=== PATIENT | female | born 1990 ===

== ENCOUNTER 2017-09-13 09:37 | Inpatient (IN) | payer OTHER ==
[~2017-09-13] VITALS: Ht 157.5 cm; Wt 82.1 kg
[2017-09-13] MEDS ORDERED: PRENATAL TABLE1 EAC2 PO (10:21)
[2017-09-13] MEDS ORDERED: HEALTHY HEART1 EACH PO (10:22)
[2017-09-13 10:48] LABS: ABSOLUTE BASOPHIL COUNT 0 /CUMM (0.0-0.2); ABSOLUTE EOSINOPHIL COUNT 0 /CUMM (0.0-0.7); ABSOLUTE GRANULOCYTE CT 6.8 /CUMM (1.4-6.5); ABSOLUTE LYMPH COUNT 1.6 /CUMM (1.2-3.4); ABSOLUTE MONOCYTE COUNT 0.6 /CUMM (0.10-0.60); BASOPHIL % 0.3 % (0.0-2.0); EOSINOPHIL % 0.5 % (0-5); GRANULOCYTE % 75.2 % (42.2-75.2); HEMATOCRIT 33.8 % (37-47); MEAN CORPUSCULAR HGB 32.3 PG (27.0-31.0); MEAN CORPUSCULAR HGB CONC 34.7 G/DL (33.0-37.0); MEAN PLATELET VOLUME 11.4 FL (7.4-10.4); RBC DISTRIBUTION WIDTH 15.3 % (11.5-14.5); RED BLOOD CELL CT 3.63 /CUMM (4.20-5.40); WHITE BLOOD CELL COUNT 9.1 /CUMM (4.8-10.8)
--- NOTE | 2017-09-13 11:16 | History & Physical ---
General Information and HPI MD Statement: I have seen and personally examined GABE VIVAR and documented this H&P. Source of Information: patient, old records Exam Limitations: no limitations History of Present Illness: The patient is a 27 year old at 41 weeks and 1 days gestation who presented with a chief complaint of IOL for pedc. Mild ctx. No lof / vb. +FM. GBS pos. RNI. Allergies/Medications Allergies: Coded Allergies: No Known Allergies (09/13/17) NKA PER T.O. OF DR. 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 No Contractions: q10 #1 - FHR Baseline: 130 Category: 1 Estimated Weight: 3800 Presentation: vtx Patient for Induction? Yes Thomas Score Thomas Score Response Value Cervix Position: mid-position 1 Cervix Consistency: soft 2 Cervix Effacement: 60-70% 2 Cervix Dilation: 3-4 cm 2 Cervix Station: -2 1 Total 8 Physical Exam: nad abd soft nt gravid ext nt tr b/l le ed Labs Blood Type & Rh: A pos Antibody Screen: neg Hct/Hgb & Platelets #1: 12.9/ 40.8, 260 Hct/Hgb & Platelets #2: 10.1/ 32.6, 162 Rubella: NI VDRL #1: neg VDRL #2: neg HbsAg: neg HIV #1: neg HIV #2 neg 1 Hr P Group B Strep: POS Initial Ultrasound: 03/21/17 8+1 cwd Anatomy Ultrasound: 04/18/17 olaf wnl Ultrasound for EFW: 08/19 37+4 7#2 55% Genetic Testing: nl NT, cffdna wnl msafp wnl hgb aa cf neg Last 24 Hrs of Labs/Afshin: Laboratory Tests 09/13/17 1026: CBC w Diff Pending, WBC Pending, RBC Pending, Hgb Pending, Hct Pending, MCV Pending, MCH Pending, MCHC Pending, RDW Pending, Plt Count Pending, MPV Pending, Gran % Pending, Lymphocytes % Pending, Monocytes % Pending, Eosinophils % Pending, Basophils % Pending, Absolute Granulocytes Pending, Absolute Lymphocytes Pending, Absolute Monocytes Pending, Absolute Eosinophils Pending, Absolute Basophils Pending 09/13/17 1021: Urine Color YEL, Urine Clarity CLEAR, Urine pH 7.0, Ur Specific Porcupine 1.015, Urine Protein NEG, Urine Ketones NEG, Urine Nitrite NEG, Urine Bilirubin NEG, Urine Urobilinogen 0.2, Ur Leukocyte Esterase NEG, Ur Microscopic EXAM NOT REQUIRED, Urine Hemoglobin NEG, Urine Glucose NEG Assessment/Plan Assessment/Plan: 27yo @ 41+1 wks IOL for pedc, GBS pos, intact, and maternal status reassuring -Admit -GBS proph --> PCN -pitocin -monitoring -MMR for RNI ANSVD As Ranked By This Provider Problem List: 1. Core Measures Venous Thromboembolism VTE Risk Factors / No Mechanical VTE Prophylaxis d/t Early Ambulation No VTE Pharm Prophylaxis d/t LowRisk-No Interven Req'd
[2017-09-13 11:19] LABS: PLATELET COUNT 142 /CUMM (130-400)
--- NOTE | 2017-09-13 16:35 | PN- OBGYN ---
Surgical Brief Attending Note Brief Attending Note: pt w/ mild ctx, slightly increased in intensity afeb, v/ss fht 130s moderate variability +acc no dec toco q 2-4 pit @ 10mu sve /-2, AROM clr p0 41+wks IOL for pedc, GBS pos, on pcn, s/p arom, clr, on pit, and maternal status reassuring -cont current mgmt -pain mgmt prn
--- NOTE | 2017-09-13 19:18 | PN- OBGYN ---
Surgical Brief Attending Note Brief Attending Note: pt c/o increasing ctx, desires nitrous afeb, v/ss fht 150s moderate variability + acc no dec toco q 2-3 pit@ 10mu sve /-2 -cont current mgmt -pain mgmt
--- NOTE | 2017-09-13 21:22 | PN- OBGYN ---
Surgical Brief Attending Note Brief Attending Note: pt w/ increasing ctx, coping well v/ss fht cat 1 sve 6/100/0 per RN cont current mgmt
--- NOTE | 2017-09-14 05:59 | PN- OBGYN ---
Surgical Brief Attending Note Brief Attending Note: pt comfortable w/ epidural afeb, v/ss fht 150s moderate variability +acc no dec toco q 2-4 pit@12mu sve 8-9 / 100 / -1 P0 41+ pedc IOL on pit, GBS on PCN, protracted, and maternal status reassuring -cont pit, current mgmt
--- NOTE | 2017-09-14 09:33 | PN- OBGYN ---
Surgical Brief Attending Note Brief Attending Note: late entry for 7:30AM pt is comfortable with epidural, no complaints. ON TOCO: ctxs q 2-3 min, FHR cat I cervix 9/100%/-1 will continue pitocin, monitor closely
--- NOTE | 2017-09-14 09:35 | PN- OBGYN ---
Surgical Brief Attending Note Brief Attending Note: pt c/o slight rectal pressure on TOCO: ctxs q 2-4 min, FHR baaseline 160, moderate variability, + acels, no decels. cervix 10/100%/0-+1 will let pt labor down, monitor closely
--- NOTE | 2017-09-14 13:38 | Labor & Delivery Summary ---
Delivery Summary Vaginal Delivery: Vaginal: spontaneous Episiotomy/Lacerations: Episiotomy/Lacerations: YES Type: 2nd degree Repair: 3-0 vicryl, 2-0 vicryl Anesthesia: epidural, local Placenta: Placenta: spontanteous, normal, 3 vessel, nuchal cord (x_) (x1) Anesthesia: epidural Baby's Weight: [id number] Apgars - 1 Min: 9 Apgars - 5 Min: 9 Additional Comments: Patient fully dilated, pushed for over 2 hours, spontaneous deliver of a viable female in cephalic presentation, KELTON position, nuchal cord 1 released, head delivered atraumatically, followed by shoulder and rest of the body without difficulties, baby vigorous and cried, placed on mother's chest, nose and mouth were suctioned with suction bulb, cord clamped and cut. Placenta delivered spontaneously, intact, three-vessel cord, retroplacental clot seen. After delivering the placenta, uterine atony encountered, uterus massage to firm, Pitocin IV, Methergine 0.2 mg IM 1, bleeding slowed down. Second-degree laceration repaired with 3-0 Vicryl using standard technique. EBL 1050 mL. Laps and needle counts were correct . Patient tolerated the procedure well, she seen recovery room in stable condition.
[2017-09-14 20:19] LABS: ABSOLUTE BASOPHIL COUNT 0 /CUMM (0.0-0.2); ABSOLUTE EOSINOPHIL COUNT 0 /CUMM (0.0-0.7); ABSOLUTE GRANULOCYTE CT 18.1 /CUMM (1.4-6.5); ABSOLUTE MONOCYTE COUNT 0.7 /CUMM (0.10-0.60); BASOPHIL % 0 % (0.0-2.0); EOSINOPHIL % 0 % (0-5); GRANULOCYTE % 91.4 % (42.2-75.2); HEMATOCRIT 32.4 % (37-47); MEAN CORPUSCULAR HGB 32.1 PG (27.0-31.0); MEAN CORPUSCULAR HGB CONC 34.6 G/DL (33.0-37.0); MEAN CORPUSCULAR VOLUME 92.7 FL (81.0-99.0); PLATELET COUNT 136 /CUMM (130-400); RBC DISTRIBUTION WIDTH 15.6 % (11.5-14.5); RED BLOOD CELL CT 3.49 /CUMM (4.20-5.40)
[2017-09-14 20:29] LABS: WHITE BLOOD CELL COUNT 19.8 /CUMM (4.8-10.8)
[2017-09-15 03:32] VITALS: BP 120/70
[2017-09-15 08:34] LABS: ABSOLUTE BASOPHIL COUNT 0.1 /CUMM (0.0-0.2); ABSOLUTE EOSINOPHIL COUNT 0 /CUMM (0.0-0.7); ABSOLUTE GRANULOCYTE CT 14.7 /CUMM (1.4-6.5); ABSOLUTE LYMPH COUNT 2.2 /CUMM (1.2-3.4); ABSOLUTE MONOCYTE COUNT 1.1 /CUMM (0.10-0.60); BASOPHIL % 0.3 % (0.0-2.0); EOSINOPHIL % 0.2 % (0-5); GRANULOCYTE % 81.3 % (42.2-75.2); HEMATOCRIT 30.2 % (37-47); MEAN CORPUSCULAR HGB 31.8 PG (27.0-31.0); MEAN CORPUSCULAR HGB CONC 33.9 G/DL (33.0-37.0); MEAN CORPUSCULAR VOLUME 93.8 FL (81.0-99.0); MEAN PLATELET VOLUME 11.4 FL (7.4-10.4); PLATELET COUNT 154 /CUMM (130-400); RBC DISTRIBUTION WIDTH 15.4 % (11.5-14.5); RED BLOOD CELL CT 3.22 /CUMM (4.20-5.40)
--- NOTE | 2017-09-15 10:40 | PN- OBGYN ---
Surgical Brief Attending Note Brief Attending Note: pt feeling well. amb / void / margarito po. no pain. min vb. +bf. no velásquez / dizziness / palpitations. afeb, v/ss nad abd soft nt ff rita min lochia ext nt tr b/l pedal ed hct 33-->30 a/p ppd 1 s/p , doing well -routine pp care -ant d/c home anselmo
[2017-09-16] MEDS ORDERED: IBUPROFEN800 M1 PO (11:07)
--- NOTE | 2017-09-16 11:13 | PN- OBGYN ---
Surgical Brief Attending Note Brief Attending Note: PPD2 Pt. resting comfortably in bed, nursing baby. A young adult female relative is with her. Denies pain. Lochia is scant rubra. Voiding and ambulating without difficulty. Tolerating all POs. Happy with so far. afebrile, VS normal Breasts - nipples moist, no mass or tenderness Abd - soft, NT Fundus - firm, NT Back - no CVAT Perineum - intact Extr - benign A: doing well , chronic mild anemia P: home today, instructions and precautions reviewed, resume daily PNV at home to office in 6 weeks for F/U
== END 2017-09-16 13:00 | DRG 775 ==
LOC: GNO 09:37
PROVIDERS: Obstetrics & Gynecology
PROC: 10E0XZZ Delivery of Products of Conception, External Approach (ICD-10-PCS; principal; 2017-09-14)
PROC: 0KQM0ZZ Repair Perineum Muscle, Open Approach (ICD-10-PCS; principal; 2017-09-14)
DX: O70.1 Second degree perineal laceration during delivery (principal); Z37.0 Single live birth; Z3A.41 41 weeks gestation of pregnancy; O69.81X0 Labor and delivery complicated by cord around neck, without compression, not applicable or unspecified; O99.824 Streptococcus B carrier state complicating childbirth
CPT/HCPCS: GNOP; GNOS; 36415; 81003; 87086; J2210; J7120